=== PATIENT | female | born 1935 | race Native Hawaiian/Other Pacific Islander ===

== ENCOUNTER 2022-09-13 14:54 | Outpatient (CLI) | payer OTHER ==
[2022-09-13 15:50] LABS: PLATELET COUNT 163 K/uL (152-353)
[2022-09-13 16:20] LABS: POTASSIUM 4.2 mmol/L (3.6-5.2)
== END 2022-09-13 19:00 | disposition home or self-care (01) ==
LOC: LAB 14:54
PROVIDERS: ATTEND Internal Medicine
DX: D33.3 Benign neoplasm of cranial nerves (principal); R26.81 Unsteadiness on feet; Z79.899 Other long term (current) drug therapy
CPT/HCPCS: 80053; 80061; 81002; 82607; 84439; 84443; 85027